=== PATIENT | female | born 1985 | race Caucasian/White ===

== ENCOUNTER 2018-11-06 12:46 | Emergency (ER) | payer MEDICAID ==
[~2018-11-06] VITALS: Ht 142.2 cm; Wt 64.0 kg
[2018-11-06 12:57] VITALS: BP 127/66
--- NOTE | 2018-11-06 15:34 | NUR ---
PT AMBULATED TO BED 05.
--- NOTE | 2018-11-06 15:34 | NUR ---
BIB SELF. AAO X4 C/O COTTON STUCK IN L EAR AFTER CLEANING WITH A Q TIP YESTERDAY. PT STATES SHE IS HAVING 7/10 PAIN AT THIS TIME. PT DENIES HEARING LOSS. PT STATES THAT SHE WENT TO A CLINIC THIS MORNING AND WAS TOLD THAT THERE IS A COTTON STUCK IN LEFT EAR. NO DISCHARGE NOTED ON LEFT EAR. PT AMBULATED WITH STEADY GAIT. ER TO EVALUATE PT.
--- NOTE | 2018-11-06 16:45 | NUR ---
PT AMBULATED TO THE BATHROOM WITH STEADY GAIT.
--- NOTE | 2018-11-06 16:47 | NUR ---
PT AMBULATED BACK TO ROOM WITH STEADY GAIT.
--- NOTE | 2018-11-06 17:39 | NUR ---
DR GUADARRAMA AT BEDSIDE FOR PT EVALUATION
--- NOTE | 2018-11-06 18:40 | NUR ---
AAO X4. EVEN AND UNLABORED BREATHING. NO SIGNS AND SYMPTOMS OF DISTRESS NOTED.
[2018-11-06 19:00] VITALS: BP 122/68
--- NOTE | 2018-11-06 19:00 | NUR ---
Patient discharged with v/s stable. Written and verbal after care instructions given and explained. Patient verbalized understanding. Ambulatory with steady gait. All questions addressed prior to discharge. Advised to follow up with PMD.
== END 2018-11-06 19:00 | disposition home or self-care (01) ==
LOC: EDSEX 12:46 → MED 12:46
DX: H92.02 Otalgia, left ear (principal)
CPT/HCPCS: 99283